=== PATIENT | male | born 1945 | race Caucasian/White ===

== ENCOUNTER 2021-08-05 09:56 | Inpatient (IN) | payer MEDICARE, SELFPAY ==
[2021-08-05] VITALS (48 sets, daily range): BP systolic 146–192; BP diastolic 71–128; PULSE 40–96; RESP 12–30; TEMP 36.9; O2SAT 96–100
--- NOTE | ~2021-08-05 | XR_ITS ---
EXAMINATION: XR chest 1V portable INDICATION: Altered mental status TECHNIQUE: Portable AP chest at 1026 hours COMPARISON: None available FINDINGS: The lungs are free of acute opacities. There is no pleural effusion or pneumothorax. The ca rdiomediastinal silhouette is normal. Changes of the right coracoclavicular joint likely reflect prio r injury. IMPRESSION: 1. No acute cardiopulmonary abnormality. Reviewed, dictated and finalized at location A. CHING MACHINE OPERATOR
--- NOTE | ~2021-08-05 | CT_ITS ---
EXAMINATION: CTA brain carotid DATE: 08/05/2021 13:00 INDICATION: Headache. Right temporal lobe infarct. TECHNIQUE: Computed tomographic angiography (CTA) of the head was performed with 100 mL Omnipaque-350 intravenous contrast. CTA of the neck was performed with intravenous contrast. Automated exposure co ntrol and iterative reconstruction technique were employed. The dose-length product was 1275.51 mGy-c m. Maximum intensity projection and volume rendered 3D-reconstructions were created by the technologi on a separate workstation. COMPARISON: Head CT 08/05/2021 FINDINGS: HEAD CTA: There is an old infarct in left occipital lobe. There is old infarct in left frontoparietal region. There is an old infarct in right parietal lobe. There is an infarct in right temporal lobe a nd posterior insula. There are scattered areas of low attenuation in the cerebral white matter. There is no intracranial hemorrhage or abnormal mass lesion. There is an old lacunar infarct in left thala mus. The ventricles are normal in size. The orbits are normal. There is mild mucosal thickening in th e paranasal sinuses. The mastoid air cells are normal. The vertebral arteries are codominant. There i s no significant stenosis of basilar artery or the posterior cerebral arteries. There is no significa nt stenosis of the intracranial internal carotid arteries or anterior or left middle cerebral arterie s. There is thrombus in a right M2 middle cerebral artery branch. There is no aneurysm. NECK CTA: There is mild emphysema. There is mild scarring at right lung apex. There is plaque in the proximal internal carotid arteries. There is 0% stenosis of the proximal right internal carotid arter y relative to normal distal artery lumen diameter (NASCET criteria). There is 30% stenosis of the pro ximal left internal carotid artery relative to normal distal artery lumen diameter. IMPRESSION: 1. Thrombus in a right M2 middle cerebral artery branch. Acute infarct in right temporal lobe and pos terior insula. 2. Old infarcts in the right parietal lobe, left frontoparietal region, left occipital lobe, and left thalamus. 3. Extensive nonspecific cerebral white matter disease, which likely represents chronic small vessel ischemic disease. 4. 0% stenosis of the proximal right internal carotid artery relative to normal distal artery lumen d iameter (NASCET criteria). 5. 30% stenosis of the proximal left internal carotid artery relative to normal distal artery lumen d iameter. Reviewed, dictated and finalized at location A. LESS DEVELOPMENT MANAGER IMPRESSION: 1. Thrombus in a right M2 middle cerebral artery branch. Acute infarct in right temporal lobe and posterior insula. 2. Old infarcts in the right parietal lobe, left frontoparietal region, left oc cipital lobe, and left thalamus. 3. Extensive nonspecific cerebral white matter disease, which likely represents chronic small vessel ischemic disease. 4. 0% stenosis of the proximal right internal carotid artery relative to normal distal artery lumen diameter (NASCET criteria). 5. 30% stenosis of the proximal left internal carotid artery relative to normal distal artery lumen diameter.
--- NOTE | ~2021-08-05 | MR_ITS ---
EXAMINATION: MR brain/brain stem wo/w con DATE: 08/06/2021 INDICATION: Cerebral vascular accident. TECHNIQUE: Magnetic resonance imaging (MRI) of the brain and brainstem was performed without and with 17 mL MultiHance intravenous contrast. Sequences included sagittal and axial T1-weighted FSE, axial diffusion-weighted FS EPI, axial T2*-weighted GRE, axial T2-weighted FLAIR Propeller, and axial T2-we ighted Propeller. Postcontrast sequences included axial, sagittal, and coronal T1-weighted FSE. Appar ent diffusion coefficient (ADC) maps were created. COMPARISON: Head CT 08/05/2021 FINDINGS: There is an acute infarct involving right parietal and temporal lobes and posterior right i nsula. There is a small acute infarct in posterior right frontal lobe. There is a small old infarct i n left cerebellum. There is an old infarct in left occipital lobe. There are old infarcts in left par ietal lobe and left frontoparietal region. There is an old infarct in left thalamus. There are scatte red areas of nonspecific increased T2-weighted signal intensity in the cerebral white matter and jaleel . There is no intracranial hemorrhage or abnormal mass lesion. There is no intraventricular thyromega ly. The orbits are normal. There is mild mucosal thickening in the ethmoid sinuses. The mastoid air c ells are normal. IMPRESSION: 1. Acute infarct involving right parietal and temporal lobes and posterior right insula. Small acute infarct in posterior right frontal lobe. 2. Old infarcts involving left cerebellum, left occipital lobe, left parietal lobe, left frontopariet al region, and left thalamus. 3. Moderate nonspecific cerebral white matter disease and pontine disease, which likely represents ch ronic small vessel ischemic disease. Reviewed, dictated and finalized at location A. CHING CONTRACTOR IMPRESSION: 1. Acute infarct involving right parietal and temporal lobes and posterior righ t insula. Small acute infarct in posterior right frontal lobe. 2. Old infarcts involving left cerebellum, left occipital lobe, left parietal l obe, left frontoparietal region, and left thalamus. 3. Moderate nonspecific cerebral white matter disease and pontine disease, whic h likely represents chronic small vessel ischemic disease.
--- NOTE | ~2021-08-05 | CT_ITS ---
EXAMINATION: CT brain wo con INDICATION: Headache COMPARISON: None TECHNIQUE: Standard unenhanced head CT. The dose-length product (DLP) was 681.00 mGy-cm. The mA was a djusted according to patient size. Iterative reconstruction technique was employed. FINDINGS: There is no acute intraparenchymal hemorrhage. No evidence of mass lesion. There is a large area of low attenuation in the right temporal lobe with loss of amado-white differentiation. There is an age-indeterminate indeterminate infarct of the left occipital lobe. Areas of prior infarction are noted in the frontoparietal regions. There is an old lacunar infarct of the left thalamus. There is an age-indeterminate infarct of the left occipital lobe. There is mild periventricular and subcortica l hypodensity probably related to small vessel ischemic disease. There is mild prominence of the sulc i and ventricles related to cerebral atrophy. Intracranial calcified cerebral atherosclerosis is note d. There are no extra-axial collections. There is no mass effect or midline shift. The orbits and sof t tissues are unremarkable. The visualized sinuses and mastoid air cells are well aerated. IMPRESSION: 1. Large area of low attenuation in the right temporal lobe concerning for subacute infarct. Age-inde terminate infarct of the left occipital lobe. There is a prior infarction in the frontoparietal regio ns and left thalamus. These findings were discussed with Santo Soriano PA-C in the Emergency Depart ment at 1119 hours on 08/05/2021. 2. Age related findings. Reviewed, dictated and finalized at location A. IFIED PROFESSIONAL MIDWIFE IMPRESSION: 1. Large area of low attenuation in the right temporal lobe concerning for suba cute infarct. Age-indeterminate infarct of the left occipital lobe. There is a prior infarction in the frontoparietal regions and left thalamus. These finding s were discussed with Santo Soriano PA-C in the Emergency Department at 1119 hours on 08/05/2021. 2. Age related findings.
--- NOTE | 2021-08-05 10:11 | ECG_ITS ---
Measurements Intervals [place] Rate: 67 P: 58 OK: 172 QRS: -34 QRSD: 89 T: 91 QT: 408 QTc: 431 Interpretive Statements SINUS RHYTHM LEFT AXIS DEVIATION LOW QRS VOLTAGE IN PRECORDIAL LEADS ANTEROSEPTAL INFARCT, AGE INDETERMINATE BORDERLINE ST-T WAVE ABNORMALITY- HIGH LATERAL LEADS BASELINE ARTIFACT- I, II, III, AVR, AVL, AVF, V1-V6 ABNORMAL ECG Electronically Signed On 08-05-2021 16:37:10 NEWS CLIPPING CUTTER by Matthew Henderson D.O.
[2021-08-05 10:26] LABS: Basophils Absolute Auto 0.2 K/mm3 (0.0-0.1); Eosinophils Absolute Auto 0.1 K/mm3 (0-0.3); Eosinophils Percent Auto 1.6 % (0-4.4); Hematocrit 43.1 % (42.0-52.0); Hemoglobin 14.5 g/dL (14.0-18.0); Immature Granulocyte Absolute 0.03 K/mm3 (0.00-0.031); Immature Granulocyte Percent A 0.4 % (0-0.5); Lymphocytes Absolute Auto 1.04 K/mm3 (0.9-3.2); Lymphocytes Percent Auto 14.2 % (18.3-44.2); Mean Corpuscular HGB Conc 33.6 g/dl (32-36); Mean Corpuscular Hemoglobin 31.8 pg (26-34); Mean Corpuscular Volume 94.5 fl (80-100); Mean Platelet Volume 9.5 fl (7.4-10.4); Monocytes Absolute Auto 0.5 K/mm3 (0.1-0.6); Monocytes Percent Auto 7.4 % (2.6-8.5); Neutrophils Absolute Auto 5.5 K/mm3 (1.3-6.7); Neutrophils Percent Auto 74.4 % (45.5-73.1); Platelet Count Result 315 k/mm3 (150-375); Red Blood Count 4.56 M/mm3 (4.6-6.20); Red Cell Distribution Width 12.6 % (11.5-14.5); White Blood Count 7.3 K/mm3 (4.5-10.0)
[2021-08-05 10:37] LABS: Alanine Aminotransferase 11 U/L (4-50); Albumin Level 4.3 g/dL (3.5-5.1); Alkaline Phosphatase 104 U/L (38-126); Anion Gap 11 mmol/L (8-16); Aspartate Amino Transferase 22 U/L (17-59); Bilirubin,Total 0.7 mg/dL (0.2-1.3); Blood Urea Nitrogen 15 mg/dL (9-20); Calcium 9.5 mg/dL (8.4-10.2); Carbon Dioxide 19 mmol/L (22-30); Chloride 104 mmol/L (98-107); Estimated CRCL calculation 42 ml/min; Estimated Glomerular Filt Rate 49; Glucose 118 mg/dL (65-110); Potassium 4.4 mmol/L (3.4-5.0); Sodium 134 mmol/L (137-145)
[2021-08-05 12:13] LABS: Add Urine Microscopic? NO; Appearance Urine Clear (Clear); Bilirubin Urine Negative (Negative); Blood Urine Negative (Negative); Color Urine Yellow (Yellow); Glucose Urine UA Negative (Negative); Ketones Urine Negative (Negative); Leukocyte Esterase Ur Negative LEU/UL (Negative); Nitrate Urine Negative (Negative); Protein Urine Negative (Negative); Specific Grav Ur 1.011 (1.001-1.035); Urobilinogen Urine Negative mg/dL (<2.0)
--- NOTE | 2021-08-05 12:16 | ED.GENADULT ---
HPI - General Adult General Chief complaint: Altered Mental Status <Santo Soriano PA-C - Last Filed: 08/05/21 15:44> Stated complaint: Confusion, not acting self. <Santo Soriano PA-C - Last Filed: 08/05/21 15:44> Time Seen by Provider: 08/05/21 10:19 <Santo Soriano PA-C - Last Filed: 08/05/21 15:44> Source: patient and family () <Santo Soriano PA-C - Last Filed: 08/05/21 15:44> Mode of arrival: ambulatory <Santo Soriano PA-C - Last Filed: 08/05/21 15:44> Limitations: altered mental status <Santo Soriano PA-C - Last Filed: 08/05/21 15:44> History of Present Illness HPI narrative: Patient is a 76-year-old male presenting with chief complaint acting abnormally per family. Patient's states that last night at 4 PM when she came home from work she noticed that the patient was speaking slightly abnormally as far as his memory recall and complained of a headache. She reports that he skipped dinner and they went to bed. She states she went to work this morning at 6 AM and later in the morning received a phone call from the patient's friend that he meets for coffee every morning and was told that the patient was acting abnormally and would need to be picked up. The patient did drive himself to the coffee establishment as he does every morning. The patient denies being confused or having any pain at this time. Patient does not have a history of stroke but they report that he is on a baby aspirin due to multiple stents placed 15 years ago. They deny any falls or head trauma. They deny any facial asymmetry, gait difficulty or weakness in his extremities. Patient's states that no one saw the patient between the hours of 6 AM and 4 PM yesterday so she is not exactly sure when his symptoms began. Patient's recollection of yesterday's events are incorrect per his . <Santo Soriano PA-C - Last Filed: 08/05/21 15:44> Related Data Home medications: Home Medications Medication Instructions Recorded Confirmed aspirin [Aspir-81] 81 DAILY 08/05/21 <Santo Soriano PA-C - Last Filed: 08/05/21 15:44> Allergies/adverse reactions: Allergies Allergy/AdvReac Type Severity Reaction Status Date / Time No Known Allergies Allergy Verified 08/05/21 10:14 <Santo Soriano PA-C - Last Filed: 08/05/21 15:44> Review of Systems Review of Systems: CONSTITUTIONAL: Denies fever, chills, or sweats. EYES: Denies visual changes, redness, or discharge. ENT: Denies rhinorrhea, congestion, sore throat, or otalgia. CARDIOVASCULAR: Denies chest pain, palpitations, or edema. RESPIRATORY: Denies cough or dyspnea. GASTROINTESTINAL: Denies abdominal pain, nausea, vomiting, or diarrhea. GENITOURINARY: Denies dysuria or hematuria. SKIN: Denies rash or itching. MUSCULOSKELETAL: Denies back pain, joint pain, or myalgia. NEUROLOGIC: Reports altered mental status denies headache, numbness, dizziness, or weakness. PSYCHIATRIC: Denies anxiety or depression. <Santo Soriano PA-C - Last Filed: 08/05/21 15:44> Exam Narrative: GENERAL: Well-appearing, well-nourished, and in no acute distress. HEAD: Normocephalic, atraumatic. EYES: PERRLA and EOMI. ENT: Nares clear, no rhinorrhea or epistaxis. Mucous membranes moist. Oropharynx without tonsillar hypertrophy exudate or other lesions. Bilateral TMs pearly amado nonbulging NECK: Supple. No adenopathy or masses. Range of motion intact. CHEST: Clear to auscultation. No respiratory distress. No wheezes rales or rhonchi HEART: Regular rate and rhythm. No murmur heard. Normal peripheral pulses. ABDOMEN: Soft, nontender, nondistended, normal active bowel sounds. EXTREMITIES: Normal range of motion. No edema. SKIN: Old abrasions to patients knees. No ady tenderness to palpation or edema. Warm, dry, no rash. NEURO: No facial asymmetry. Patient able to name items. But recall of events of today and yesterday are wrong per . Sentences are fluid. No w
--- NOTE | 2021-08-05 14:44 | PC.NURSE ---
Attempted to re-apply monitoring cables and cords; pt. will not allow.
--- NOTE | 2021-08-05 14:47 | PC.NURSE ---
Bed alarm placed under pt. prior to this time.
--- NOTE | 2021-08-05 14:50 | PC.NURSE ---
Pt up at bedside with clothes on. Disoriented and wanting to leave. Spouse at bedside.
[2021-08-05] MEDS: HALOPERIDOL LACTATE 5 MG/ML VIAL IV PUSH ×2 (15:08→16:00)
--- NOTE | 2021-08-05 16:00 | PC.NURSE ---
Pt continues to try to get out of bed and argue with staff. VORB for 5 mg Haldol from [facility].
--- NOTE | 2021-08-05 18:00 | PM.IMHP ---
H&P: HPI History of Present Illness Date/Time: 08/05/21 18:00 <Khalida Cisneros PA-C - Last Filed: 08/05/21 22:19> Chief Complaint: Altered mental status. <Khalida Cisneros PA-C - Last Filed: 08/05/21 22:19> Narrative: This is a 76-year-old male smoker with coronary artery disease and hypertension who presented to the emergency department earlier today via private vehicle for evaluation of altered mental status. He is alert and oriented x2 however he is quite confused regarding the situation which brought him to the hospital today and thus a majority of the following is obtained via a review of his electronic medical records as well as discussions with his who is at bedside. He seemed to be in his usual state of health yesterday morning when his went to work and when she returned later that evening he decided to skip dinner and retired to bed early as he had a headache. She left for work this morning at 06:00 and the patient was still in bed at that time. It is my understanding that the patient drove himself to a local restaurant this morning meet his friends for coffee as usual at which time he was noted to be acting strangely and someone phoned his family members who in turn brought him to the hospital for evaluation. Brain CT showed a large area of low attenuation the right temporal lobe as well as in age-indeterminate infarct in left occipital lobe and a subsequent CTA of the head and neck showed a thrombus in a right M2 middle cerebral artery branch with an acute infarct in the right temporal lobe and posterior insula. Several conversations were had with Dr. Leon with the stroke team at [facility] and unfortunately he does not feel the patient is appropriate for a intervention for multiple reasons including last known normal being too far out, a low NIH Stroke Scale, and the distal location of the thrombus. At the time my evaluation patient has no complaints though he gets quite agitated as he does not want to stay in the hospital and he has to be constantly reminded why he is at the hospital though he does not seem to comprehend. <Khalida Cisneros PA-C - Last Filed: 08/05/21 22:19> Review of Systems Review of Systems: A review of systems was attempted but limited as the patient is agitated and does not answer some of my questions. He also seems a bit disoriented and the accuracy of such is questionable. denies any recent illnesses. The patient had previously been on medications for blood pressure but not for many years. She has not heard him complain of anything recently aside from the headache yesterday. <Khalida Cisneros PA-C - Last Filed: 08/05/21 22:19> [facility] Past Medical History Medical History: Medical History (Updated 08/05/21 @ 22:00 by Khalida Cisneros PA-C) Coronary artery disease Hypertension Tobacco dependence <Khalida Cisneros PA-C - Last Filed: 08/05/21 22:19> Surgical History Surgical History: Surgical History (Updated 08/05/21 @ 21:56 by Khalida Cisneros PA-C) History of cardiac catheterization History of heart artery stent History of knee replacement <Khalida Cisneros PA-C - Last Filed: 08/05/21 22:19> Family History Family History: Family History (Updated 08/05/21 @ 21:56 by Khalida Cisneros PA-C) Other Hypertension <Khalida Cisneros PA-C - Last Filed: 08/05/21 22:19> Social History Social History: Social History (Updated 08/05/21 @ 21:57 by Khalida Cisneros PA-C) Social History: The patient lives with his in [place]. 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 He smokes about a pack of cigarettes a day. No alcohol or illicit substance abuse. Code status: Full code. Smoking packs per day: 1 Smoking cigarettes per day: 20.0 Years smoked: 50 Smoking pack-years: 50.00 Smoking status: Current every day smoker Tobacco type: cigarettes Alcohol intake: current Drinks per week: 14 Substance use: never
--- NOTE | 2021-08-05 19:58 | PC.NURSE ---
A&O x 2 reoriented to day uncooperative and sitter at bed side
--- NOTE | 2021-08-05 21:20 | PC.NURSE ---
pt will not tolerate director of cardiac cath lab pulling leads off
--- NOTE | 2021-08-05 22:50 | PC.NURSE ---
sleeping resp even unlabored sitter at bedside
[2021-08-06] VITALS (19 sets, daily range): BP systolic 127–167; BP diastolic 59–104; PULSE 49–88; RESP 16–18; TEMP 36.6–37.1; O2SAT 94–100; BMI 27.3
--- NOTE | 2021-08-06 08:00 | PC.NURSE ---
Pt confused and getting out of bed. Sitter placed at bedside for pt's safety. Call light within reach.
[2021-08-06 08:12] LABS: Anion Gap 8 mmol/L (8-16); Blood Urea Nitrogen 15 mg/dL (9-20); Calcium 9.5 mg/dL (8.4-10.2); Carbon Dioxide 25 mmol/L (22-30); Chloride 101 mmol/L (98-107); Estimated CRCL calculation 42 ml/min; Estimated Glomerular Filt Rate 49; Glucose 98 mg/dL (65-110); Phosphorus 3.4 mg/dL (2.5-4.5); Potassium 4.2 mmol/L (3.4-5.0); Sodium 134 mmol/L (137-145)
--- NOTE | 2021-08-06 08:53 | PM.IMPN ---
Progress Note: A&P Assessment and Plan (1) Cerebrovascular accident: Code(s): I63.9 - Cerebral infarction, unspecified Status: Acute Assessment and Plan: Acute cerebrovascular infarct. Patient has passed the time of intervention. Health system in the area were contacted for transfer; at this time there is no indication for any interventional procedure and due to lack of availability of bed, patient was rejected for transfer. CTA of the head and neck shows a thrombus in the right M2 middle cerebral artery branch with an acute infarct in the right temporal lobe and posterior insula. Old infarcts also noted in the right parietal lobe, left frontoparietal region, left occipital lobe, and the left thalamus which were unknown to the patient and his prior to this study today. Unfortunately he has been deemed to not be a candidate for intervention per [facility] stroke team as detailed in HPI. Dr. Reina (neurology) was consulted by the ED provider and at this time he recommends on holding anticoagulation pending further evaluation and brain MRI tomorrow. Echocardiogram with bubble study has also been ordered. (2) Hypertension: Code(s): I10 - Essential (primary) hypertension Status: Acute Assessment and Plan: According to the patient's , he has not been on any antihypertensives for quite some time. Initially his blood pressures were in the 180s to 190 systolic but have improved to the 150s . Due to acute stroke, we will observe permissive hypertension for 4872 hours before starting blood pressure management. (3) Tobacco dependence: Code(s): F17.200 - Nicotine dependence, unspecified, uncomplicated Status: Acute Assessment and Plan: Smoking sensation is imperative. Patient declines the need for nicotine patch. (4) Coronary artery disease: Code(s): I25.10 - Atherosclerotic heart disease of [place] coronary artery without angina pectoris Status: Acute Assessment and Plan: History of stents 15+ years ago for which she takes a baby aspirin daily. (5) Renal insufficiency: Code(s): N28.9 - Disorder of kidney and ureter, unspecified Status: Acute Assessment and Plan: Baseline renal function unknown. Patient admitted with BUN creatinine of 15/1.4. Kidney function appears to be stable. Records requested from primary care provider for review. He appears euvolemic. Subjective Date/time seen: 08/06/21 08:58 S: Patient examined at the bedside. He is awake alert and pleasantly confused. Baseline mental status was awake alert oriented x4. No obvious deficit. He was agitated overnight and had to be medicated with Haldol. Review of Systems Review of Systems: ROS unobtainable: Yes unobtainable due to mental status Exam Narrative: General: Well-developed elderly male supine in bed. Weight: 88.2 kg. BMI: 27.1. HEENT: Normocephalic, atraumatic. PERRL, EOMI. Sclerae anicteric. Moist mucous membranes. Oropharynx poorly visualized. Neck: Supple. No obvious bruits though difficult to auscultate as the patient does not hold his breath long. Respiratory: Lungs are clear to auscultation bilaterally. Cardiovascular: Regular rate and rhythm with S1-S2. Gastrointestinal: Abdomen is soft, nontender, and nondistended with positive bowel sounds. Skin: Warm and dry. Chronic skin changes of the lower legs bilaterally. Extremities: No cyanosis or clubbing. Trace pretibial edema bilaterally. Radial and pedal pulses intact. Neurological: Alert to name, age, date of , year, and president. He is not oriented to situation however. Cranial nerves 2-12 are grossly intact. No facial asymmetry. Speech is easy to understand though he is not putting together full sentences. He is noted to move upper and lower extremities. Hand territory service representative equal bilaterally. He did not participate in the rest of the neurologic exam due to agitation. Psychiatric: Agitated, trying to g
--- NOTE | 2021-08-06 09:30 | PC.NURSE ---
Echo at bedside.
--- NOTE | 2021-08-06 10:10 | PC.NURSE ---
Pt resting on stretcher. Calm and cooperative. Sitter at bedside. Meal tray ordered.
--- NOTE | 2021-08-06 11:42 | PC.NURSE ---
MRI screening form completed to best of ability. Pt unable to answer questions. called and provided history to complete form.
--- NOTE | 2021-08-06 12:45 | PC.NURSE ---
Pt's at bedside. Resting comfortably on stretcher.
--- NOTE | 2021-08-06 13:52 | PC.NURSE ---
Pt to MRI.
--- NOTE | 2021-08-06 14:30 | PC.NURSE ---
Pt returned from MRI. No change in pt condition. Pt calm and cooperative. Sitting in chair. Spouse at bedside. Pt refuses to keep tele monitoring on.
--- NOTE | 2021-08-06 15:18 | PCPTNOTE ---
Spoke with case technician, pt waiting on a room for admission. Needs eval once on the floor for placement. Will attempt eval on 08/07/21.
--- NOTE | 2021-08-06 15:30 | PC.NURSE ---
pt fully dressed - up in hallway - states he is going home. in room. Talked pt back in room to wait for doctor to come in and speak with him.
--- NOTE | 2021-08-06 15:48 | PC.NURSE ---
contacted Dr. Turk at [phone] for haldol. states she is ordering it currently.
--- NOTE | 2021-08-06 15:54 | PC.NURSE ---
Per Dr. Burke [facility] will not accept patient due to lack of beds and being outside of the window for neurologic intervention.
[2021-08-06] MEDS: HALOPERIDOL LACTATE 5 MG/ML VIAL IV PUSH (16:01)
--- NOTE | 2021-08-06 16:05 | PC.NURSE ---
Pt becoming agitated and wanting to leave. Pt removed all monitors and gown and put on his clothes and is attempting to walk out the door. Able to talk pt into going back into his room. Hospitalist called for medication to calm pt down. Spouse at bedside. Sitter at bedside.
--- NOTE | 2021-08-06 16:13 | PC.NURSE ---
Unable to obtain VS at this time due to agitation. Pt frequently trying to walk out of room. Pt and spouse frustrated about wait times for inpatient bed. Offered pt dinner or coffee. Pt declined.
--- NOTE | 2021-08-06 20:10 | ADMGEN ---
This patient, Geoff Murphy, was admitted to Medical Room [facility]- at 2009. Patient/family oriented to hospital policies and general routines including ID bracelet, bed and alarms, visiting hours, pain management, procedures, bathroom and other care routines, personal items, smoking policy, room service/diet, and visiting hours. Information on how to activate the Rapid Response Team has been discussed. Patient/Family are encouraged to report perceived risks to care and to ask questions if they do not understand what they are told or what they should do.
[2021-08-06] MEDS: ASPIRIN 81 MG ENTERIC TABLET PO (20:59)
[2021-08-06] MEDS: ATORVASTATIN 40 MG TABLET PO (20:59)
--- NOTE | 2021-08-06 22:15 | ECHO_ITS ---
Patient Info Name: Geoff Murphy Age: 76 years : 1945 Gender: Male Ht: 71 in Wt: 194 lbs BSA: 2.11 m2 HR: 62 bpm BP: 154 / 86 mmHg Heart Rhythm: Sinus Rhythm Technical Quality: Good Exam Date: 08/06/2021 9:34 AM Exam Location: [facility] Pulmonary Patient Status: Outpatient Admit Date: 08/05/2021 Staff Ordering Physician: Khalida Cisneros PA-C Wood Model Maker: Lisa Marin RDCS Attending Provider: Delores Turk MD Referring Physician: Amelia MARTE; Exam Type: CA echo doppler w bubble study Study Info Indications - CVA Complete two-dimensional, color flow and Doppler transthoracic echocardiogram is performed with agitated saline. Summary 1. Left ventricular chamber dimension is normal. 2. Left ventricular systolic function is normal, estimated at 65-70%. 3. There is moderately increased left ventricular wall thickness. 4. The left ventricular diastolic function is grade I diastolic dysfunction. 5. The apical cap is hypokinetic. 6. Left atrial chamber dimension is mildly enlarged. 7. Right atrial chamber dimension is mildly enlarged. 8. Intact interatrial septum visualized by color flow and agitated saline imaging. 9. There is mild aortic valve calcification. 10. There is mild to moderate mitral valve regurgitation. 11. The mitral valve annulus is moderately calcified. 12. There is mild tricuspid valve regurgitation. 13. The mitral valve has thickened leaflets and calcified leaflets. Left Ventricle Left ventricular chamber dimension is normal. Left ventricular systolic function is normal, estimated at 65-70%. There is moderately increased left ventricular wall thickness. The left ventricular diastolic function is grade I diastolic dysfunction. The apical cap is hypokinetic. Right Ventricle Right ventricular chamber dimension is normal. Right ventricular systolic function is normal. Left Atria Left atrial chamber dimension is mildly enlarged. Right Atria Right atrial chamber dimension is mildly enlarged. Atrial Septum Intact interatrial septum visualized by color flow and agitated saline imaging. Aortic Valve The aortic valve is trileaflet. There is no aortic valve stenosis. There is trace aortic valve regurgitation. There is mild aortic valve calcification. Pulmonic Valve The pulmonic valve is normal. There is no pulmonic valve stenosis. There is trace pulmonic regurgitation. Mitral Valve The mitral valve has thickened leaflets and calcified leaflets. There is no mitral valve stenosis. There is mild to moderate mitral valve regurgitation. The mitral valve annulus is moderately calcified. Tricuspid Valve The tricuspid valve leaflets are normal. There is no significant tricuspid valve stenosis. There is mild tricuspid valve regurgitation. No pulmonary hypertension, estimated pulmonary arterial systolic pressure is 26 mmHg. Pericardium/Pleural The pericardium appears normal. There is no pericardial effusion. Inferior Vena Cava Normal inferior vena cava with >50% collapse upon inspiration consistent with normal right atrial pressure, 10 mmHg. Aorta The aortic root size at the sinus of Valsalva is normal. The prox ascending aorta size is normal. Left Ventricular Outflow Tract Name Value Normal LVOT 2D ------
[2021-08-07] VITALS: PULSE 47
--- NOTE | 2021-08-07 01:44 | PC.NURSE ---
Unable to consult neurology no available neurology until 08/09/21
[2021-08-07 03:31] VITALS: BP 148/60; PULSE 55; RESP 17; TEMP 37.1; O2SAT 98
[2021-08-07 04:00] VITALS: PULSE 47
[2021-08-07] MEDS: ASPIRIN 81 MG ENTERIC TABLET PO (08:04)
[2021-08-07] MEDS: ATORVASTATIN 40 MG TABLET PO (08:04)
[2021-08-07 14:00] VITALS: BP 154/68; PULSE 65; RESP 18; TEMP 36.2; O2SAT 99
[2021-08-07 14:38] LABS: Alanine Aminotransferase 13 U/L (4-50); Albumin Level 4.3 g/dL (3.5-5.1); Alkaline Phosphatase 90 U/L (38-126); Anion Gap 5 mmol/L (8-16); Aspartate Amino Transferase 28 U/L (17-59); Bilirubin,Total 0.7 mg/dL (0.2-1.3); Blood Urea Nitrogen 21 mg/dL (9-20); Calcium 9.1 mg/dL (8.4-10.2); Carbon Dioxide 26 mmol/L (22-30); Chloride 99 mmol/L (98-107); Estimated CRCL calculation 36 ml/min; Estimated Glomerular Filt Rate 42; Glucose 135 mg/dL (65-110); Potassium 4.3 mmol/L (3.4-5.0); Sodium 130 mmol/L (137-145)
--- NOTE | 2021-08-07 14:54 | PM.CNCAR ---
Assessment and Plan Additional Plan 76-year-old patient presenting to the hospital with a parietal CVA. He has had a fairly good symptomatic recovery. Has been started on anti-platelet therapy which appears to be appropriate since evaluation appears to show this is due to small-vessel intracerebral disease. I do not see any evidence on the record to suggest a cardioembolic source since he has no evidence of or history of atrial fibrillation, no mitral valve disease, no left ventricular systolic dysfunction and no evidence of intracardiac shunt as seen by agitated saline contrast imaging. I would continue the anti-platelet regimen that has been initiated and I this time I do not have any additional cardiac recommendations to make. Chuy Pacheco MD [facility] History of Present Illness History of Present Illness Consult date/time: 08/07/21 14:54 Reason For Visit: R middle cerebral arteries thrombus infarct Narrative: This is a 76-year-old man who I am asked to see in consultation who was hospitalized with a CVA. The patient states that symptoms of this event began on Monday of this past week. He was having symptoms of feeling a bit confused and disoriented. Apparently his wanted him to come to the emergency room to be evaluated but he did not go. morning he was meeting some friends at a coffee shop with a normally have coffee in the order who knows him well I recognized that he was not behaving normally and call his son who had him brought into the hospital for evaluation. He has been found to have acute right parietal stroke and as well as MRI evidence of several other previous strokes. The appearance of the MRI is most consistent with chronic small-vessel cerebrovascular disease. He does not have any specific complaints right now he is not having any disturbance of his vision or motor function of his extremities. He is speaking fluently at this time and does not have any other complaints. His states he is still a bit confused but I do not appreciate that on this exam. 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 He followed with that physician for a while but has chosen not to maintain active follow-up for reasons that are not clear. For that reason he was taking no medication of any kind prior to coming in the hospital. An echocardiogram was done with demonstrating sinus rhythm. He has been on telemetry since admission there have been no signs of atrial fibrillation. An echocardiogram was done with agitated saline contrast ER yesterday. Patient has normal left ventricular systolic function, no valvular disease and no evidence of any intracardiac shunt. It looks like since admission he has been placed on aspirin and clopidogrel. Review of Systems Constitutional: Constitutional: Reports no additional constitutional complaints Eyes: Eyes: Reports no additional eye complaints ENT: Reports system reviewed and no additional complaints, except as documented Cardiovascular: Cardiovascular: Reports as per HPI Respiratory: Respiratory: Reports no additional respiratory complaints Gastrointestinal: Gastrointestinal: Reports no additional gastrointestinal complaints Musculoskeletal: Musculoskeletal: Reports no additional musculoskeletal complaints Integumentary/Breasts: Skin/Breast: Reports system reviewed and no additional complaints, except as docu Neurologic: Reports as per HPI Endocrine: Endocrine: Reports no additional endocrine complaints Hematologic/Lymphatic: Hematologic/Lymphatic: Reports no additional hematologic/lymphatic complaints Allergic/Immunologic: Allergic/Immunologic: Reports no additional allergic/immunologic complaints [facility] Past Medical History Medical History (Updated 08/05/21 @ 22:00 by Khalida Cisneros PA-C) Coronary artery disease Hypertension Tobacco dependence Surgical History Surgical
--- NOTE | 2021-08-07 14:57 | PM.IMPN ---
Progress Note: A&P Assessment and Plan (1) Cerebrovascular accident: Code(s): I63.9 - Cerebral infarction, unspecified Status: Acute Assessment and Plan: Acute cerebrovascular infarct involving right parietal, right temporal lobes and posterior right insula. Small acute infarct in posterior right frontal lobe. In addition, there are vestiges of old infarcts in the right parietal lobe, left frontoparietal region, left occipital lobe, and left thalamus. Currently patient is on aspirin and Plavix. An echocardiogram with bubble study did not identify a source of cardiembolic etiology. There were no telemetry events. Patient was evaluated by Physical therapy. Left-sided deficits were identified. Plan will be to monitor the patient for another 24 hours, continue aggressive physical therapy and occupational therapy. However patient is anxious to go home. I spoke to his daughter Lana who is a physician. We will discharge the patient home with a close follow up appointment within 1 week. He will be evaluated by neurology within 2-4 weeks No driving for 4 weeks. (2) Hypertension: Code(s): I10 - Essential (primary) hypertension Status: Acute Assessment and Plan: According to the patient's , he has not been on any antihypertensives for quite some time. Initially his blood pressures were in the 180s to 190 systolic but have improved to the 150s . Due to acute stroke, we will observe permissive hypertension for 72 hours before starting blood pressure management. Currently systolic blood pressure in the 150s. There is no emergent indication for antihypertensive therapy. Plan to monitor the blood pressure daily at home and start blood pressure medication if blood pressure is over 150/90. (3) Tobacco dependence: Code(s): F17.200 - Nicotine dependence, unspecified, uncomplicated Status: Acute Assessment and Plan: Patient was extensively counseled regarding smoking cessation. At this time he is continues to declined nicotine replacement therapy. (4) Coronary artery disease: Code(s): I25.10 - Atherosclerotic heart disease of [place] coronary artery without angina pectoris Status: Acute Assessment and Plan: History of stents 15+ years ago for which she takes a baby aspirin daily. (5) Renal insufficiency: Code(s): N28.9 - Disorder of kidney and ureter, unspecified Status: Acute Assessment and Plan: Baseline renal function unknown. Patient admitted with BUN creatinine of 15/1.4. Kidney function appears to be stable. Mild increase of creatinine at 1.6 today. Records requested from primary care provider for review. He appears euvolemic. Follow-up with Nephrology within 6 weeks of discharge. Renal ultrasound as an outpatient. Subjective Date/time seen: 08/07/21 14:57 s: Patient awake alert and confused. He is aware of his current diagnosis but is very anxious to return home. Physical therapy evaluation was done. There is left-sided neglect and denial of stroke impact. Review of Systems Review of Systems: ROS unobtainable: Yes unobtainable due to mental status Exam Narrative: General: Well-developed elderly male supine in bed. Weight: 88.2 kg. BMI: 27.1. HEENT: Normocephalic, atraumatic. PERRL, EOMI. Sclerae anicteric. Moist mucous membranes. Oropharynx poorly visualized. Neck: Supple. No obvious bruits though difficult to auscultate as the patient does not hold his breath long. Respiratory: Lungs are clear to auscultation bilaterally. Cardiovascular: Regular rate and rhythm with S1-S2. Gastrointestinal: Abdomen is soft, nontender, and nondistended with positive bowel sounds. Skin: Warm and dry. Chronic skin changes of the lower legs bilaterally. Extremities: No cyanosis or clubbing. Trace pretibial edema bilaterally. Radial and pedal pulses intact. Neurological: Alert to name, age, date of , year, and president. He is n
--- NOTE | 2021-08-07 15:34 | PM.DS ---
DS: Admitting Diagnosis Discharge Date 08/07/2021 Admitting Diagnosis (1) Cerebrovascular accident: (2) Hypertension: (3) Tobacco dependence: (4) Coronary artery disease: (5) Renal insufficiency: DS: Discharge Diagnosis Discharge Diagnosis (1) Cerebrovascular accident: Code(s): I63.9 - Cerebral infarction, unspecified Status: Acute Assessment and Plan: Acute cerebrovascular infarct involving right parietal, right temporal lobes and posterior right insula. Small acute infarct in posterior right frontal lobe. In addition, there are vestiges of old infarcts in the right parietal lobe, left frontoparietal region, left occipital lobe, and left thalamus. An echocardiogram with bubble study did not identify a source of cardiembolic etiology. There were no telemetry events. Patient was evaluated by Physical therapy. Left-sided deficits were identified. Plan will be to monitor the patient for another 24 hours, continue aggressive physical therapy and occupational therapy. However patient is anxious to go home. Patient will be discharged with close follow up with his primary care physician. Patient to remain accompanied at all times. (2) Hypertension: Code(s): I10 - Essential (primary) hypertension Status: Acute Assessment and Plan: According to the patient's , he has not been on any antihypertensives for quite some time. Initially his blood pressures were in the 180s to 190 systolic but have improved to the 150s . Due to acute stroke, we will observe permissive hypertension for 48-72 hours before starting blood pressure management. (3) Tobacco dependence: Code(s): F17.200 - Nicotine dependence, unspecified, uncomplicated Status: Acute Assessment and Plan: Smoking sensation is imperative. Patient declines the need for nicotine patch. (4) Coronary artery disease: Code(s): I25.10 - Atherosclerotic heart disease of [place] coronary artery without angina pectoris Status: Acute Assessment and Plan: History of stents 15+ years ago for which she takes a baby aspirin daily. (5) Renal insufficiency: Code(s): N28.9 - Disorder of kidney and ureter, unspecified Status: Acute Assessment and Plan: Baseline renal function unknown. Patient admitted with BUN creatinine of 15/1.4. Kidney function appears to be stable. Records requested from primary care provider for review. He appears euvolemic. Patient will follow up as an outpatient. DS: Summary Hospital Course Reason for hospitalization: Altered mental status. Hospital Course: This is a 76-year-old gentleman with history of chronic smoking, coronary artery disease and hypertension who presented to the emergency department on 08/05 via private vehicle for evaluation of altered mental status. He is alert and oriented x2 however he is quite confused regarding the situation which brought him to the hospital today and thus a majority of the following is obtained via a review of his electronic medical records as well as discussions with his who is at bedside. He seemed to be in his usual state of health yesterday morning when his went to work and when she returned later that evening he decided to skip dinner and retired to bed early as he had a headache. She left for work this morning at 06:00 and the patient was still in bed at that time. It is my understanding that the patient drove himself to a local restaurant this morning meet his friends for coffee as usual at which time he was noted to be acting strangely and someone phoned his family members who in turn brought him to the hospital for evaluation. Brain CT showed a large area of low attenuation the right temporal lobe as well as in age-indeterminate infarct in left occipital lobe and a subsequent CTA of the head and neck showed a thrombus in a right M2 middle cerebral artery branch with an acute infarct in the right temporal lobe and posterio
== END 2021-08-07 16:40 | disposition home or self-care (01) | DRG 66 ==
LOC: ANHED 17:26 → ANH3MEDSUR 23:56 → ANH2MED 08-06 19:33
PROVIDERS: Physician Assistant; Admitting Provider Internal Medicine; Emergency Provider Emergency Medicine; PCP Internal Medicine; Visit Provider Internal Medicine
DX: I63.9 Cerebral infarction, unspecified (principal); I10 Essential (primary) hypertension; R29.701 NIHSS score 1; I25.10 Atherosclerotic heart disease of native coronary artery without angina pectoris; F17.210 Nicotine dependence, cigarettes, uncomplicated; N28.9 Disorder of kidney and ureter, unspecified; Z28.21 Immunization not carried out because of patient refusal; Z95.5 Presence of coronary angioplasty implant and graft
CPT/HCPCS: 36415; 70450; 70496; 70498; 70553; 71045; 80048; 80053; 81003; 83735; 84100; 84443; 85025; 93005; 93306; 96374; 96375; 96376; 97162; 97165; 99285; A9270; A9577; G0378; J1630; Q9967